=== PATIENT | male | born 1990 | race Caucasian/White ===

== ENCOUNTER 2017-01-29 19:00 | Emergency (ER) | payer SELFPAY ==
[~2017-01-29] VITALS: Ht 170.2 cm; Wt 60.3 kg
[2017-01-29 19:15] VITALS: BP 116/64; PULSE 58; RESP 16; TEMP 97.8; O2SAT 99
[2017-01-29 20:01] LABS: BASOPHILS # (AUTO) 0.1 K/uL (0.0-0.2); BASOPHILS % (AUTO) 1.1 % (0.0-2.0); EOSINOPHILS # (AUTO) 0.2 K/uL (0.0-0.4); EOSINOPHILS % (AUTO) 2.2 % (0.0-4.0); HEMATOCRIT 47.9 % (36-54); HEMOGLOBIN 15.9 g/dL (14.0-18.0); LYMPHOCYTES # (AUTO) 1.9 K/uL (1.0-5.5); LYMPHOCYTES % (AUTO) 21.9 % (20.5-51.5); MEAN CORPUSCULAR HEMOGLOBIN 30 pg (27-31); MEAN CORPUSCULAR HGB CONC 33 % (32-36); MEAN CORPUSCULAR VOLUME 89 fL (79.0-98.0); MONOCYTES # (AUTO) 0.6 K/uL (0.0-1.0); MONOCYTES % (AUTO) 7.1 % (1.7-9.3); NEUTROPHILS # (AUTO) 6.1 K/uL (1.8-7.7); NEUTROPHILS % (AUTO) 67.7 % (40.0-70.0); PLATELET COUNT (AUTO) 312 K/uL (130-430); RED BLOOD CELL COUNT(AUTO) 5.38 MIL/uL (4.2-6.2); RED CELL DISTRIBUTION WIDTH 12.1 % (9.0-15.0); WHITE BLOOD COUNT (AUTO) 8.9 K/uL (4.8-10.8)
[2017-01-29 20:06] LABS: CALCIUM 9.5 mg/dL (8.4-11.0); CHLORIDE 103 mmol/L (98-107); CREATININE 0.99 mg/dL (0.55-1.30); GLUCOSE 97 mg/dL (70-99); POTASSIUM 4.8 mmol/L (3.5-5.1); SODIUM SERUM 135 mmol/L (136-145); UREA NITROGEN, BLOOD 16 mg/dL (8-21)
[2017-01-29 20:07] LABS: ANION GAP < 3 (5-15); GFR AFRICAN AMERICAN 119 mL/min (>90)
[2017-01-29 20:08] LABS: ALANINE AMINOTRANSFERASE 250 U/L (12-78); ALBUMIN 4.4 g/dL (3.4-4.8); ASPARTATE AMINOTRANSFERASE 281 U/L (10-37); LIPASE 142 U/L (73-393); TOTAL BILIRUBIN 1.1 mg/dL (0.0-1.0)
--- NOTE | 2017-01-29 20:15 | NUR ---
Patient to ER bed 8 to gown for evaluation. Side rails up. Report given to RAMON Marie
--- NOTE | 2017-01-29 20:15 | NUR ---
PT C/O ABD PAIN 6/10 FOR 1 DAY, BUT HAS HAD ONGOING ABD PAIN FOR ONE YEAR NOW. STATES HE HAD N/VX1 TODAY. DID NOT TAKE ANY MEDS FOR HIS PAIN. NO DIARRHEA. SAFETY PRECAUTIONS IN PLACE, WILL CONTINUE TO MONITOR.
--- NOTE | 2017-01-29 20:30 | NUR ---
ER Dr. GEORGE at bedside examining patient.
[2017-01-29 20:42] LABS: BILIRUBIN,URINE NEGATIVE (NEGATIVE); BLOOD, URINE NEGATIVE (NEGATIVE); CLARITY/URINE CLEAR (CLEAR); COLOR,URINE YELLOW (YELLOW); GLUCOSE,URINE NEGATIVE (NEGATIVE); KETONES,URINE NEGATIVE (NEGATIVE); LEUKOCYTE ESTERASE ,URINE NEGATIVE (NEGATIVE); NITRITE, URINE NEGATIVE (NEGATIVE); PH,URINE 6.5 (5.0-8.0); PROTEIN URINE NEGATIVE (NEGATIVE); UROBILINOGEN,URINE 0.2 (0.2-1.0)
[2017-01-29 21:34] LABS: BARBITURATE, URINE NEGATIVE (NEG <=200); BENZODIAZEPINE, URINE NEGATIVE (NEG <=150); CANNABINOID, URINE NEGATIVE (NEG <=50); COCAINE, URINE NEGATIVE (NEG <=150); METHAMPHETAMINES SCREEN,URINE NEGATIVE (NEG <=500); OPIATE, URINE NEGATIVE (NEG <=100); PHENCYCLIDINE SCREEN,URINE NEGATIVE (NEG <=25); UR TRICYCLIC ANTIDEPRESSANTS NEGATIVE (NEG <=300); URINE AMPHETAMINE NEGATIVE (NEG <=500); URINE METHADONE NEGATIVE (NEG <=200); URINE OXYCODONE SCREEN NEGATIVE (NEG <=100); URINE PROPOXYPHENE SCREEN NEGATIVE (NEG <=300)
[2017-01-29 22:14] VITALS: BP 122/69; PULSE 60; RESP 16; TEMP 97.8; O2SAT 99
--- NOTE | 2017-01-29 22:14 | NUR ---
Patient given written and verbal discharge instructions and verbalizes understanding. ER MD DR. GEORGE discussed with patient the results and treatment provided. Patient in stable condition. ID arm band removed. Rx of TYLENOL WITH CODEINE given. Patient educated on pain management and to follow up with PMD. Pain Scale 3/10, STATES PAIN IS TOLERABLE, AMBULATED W/ STEADY GAIT. Opportunity for questions provided and answered.
== END 2017-01-29 22:14 | disposition home or self-care (01) ==
LOC: SED 19:00
DX: R10.9 Unspecified abdominal pain (principal); R74.0 Nonspecific elevation of levels of transaminase and lactic acid dehydrogenase [LDH]; R94.5 Abnormal results of liver function studies
CPT/HCPCS: 36415; 74176; 80053; 80307; 81003; 83690; 85025; 99285; G0482